=== PATIENT | female | born 1985 | race Caucasian/White ===

== ENCOUNTER 2021-02-13 13:35 | Outpatient (CLI) | payer OTHER ==
[2021-02-13] MEDS ORDERED: PRENATAL CAPLE1 EAC1 PO (13:52)
== END 2021-02-13 15:45 | disposition left against medical advice (07) ==
LOC: OBS/DEL 13:35
PROVIDERS: ATTEND Student in an Organized Health Care Education/Training Program
DX: O26.892 Other specified pregnancy related conditions, second trimester (principal); Z04.3 Encounter for examination and observation following other accident; Z3A.21 21 weeks gestation of pregnancy; W19.XXXA Unspecified fall, initial encounter; Y93.89 Activity, other specified; Y92.89 Other specified places as the place of occurrence of the external cause; Y99.8 Other external cause status